=== PATIENT | female | born 2000 | race African-American/Black ===

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

== ENCOUNTER 2021-01-01 13:39 | Emergency (ER) | payer MEDICAID ==
[~2021-01-01] VITALS: Ht 172.7 cm; Wt 86.4 kg
[2021-01-01 13:46] VITALS: BP 130/86; TEMP 97.2
[2021-01-01 15:25] VITALS: PULSE 87
== END 2021-01-01 15:26 | disposition home or self-care (01) ==
LOC: COL.ER 13:39
DX: J35.8 Other chronic diseases of tonsils and adenoids (principal); F17.210 Nicotine dependence, cigarettes, uncomplicated
CPT/HCPCS: J1885

== ENCOUNTER 2021-01-03 21:40 | Emergency (ER) | payer MEDICAID ==
[~2021-01-03] VITALS: Ht 172.7 cm; Wt 86.4 kg
[2021-01-03 23:42] LABS: STREP SCREEN NEGATIVE
[2021-01-03 23:54] LABS: COLLECTION METHOD CLEAN CATCH
[2021-01-03 23:56] LABS: MONOSCREEN NEGATIVE
[2021-01-03] MEDS ORDERED: PREDNISONE10 MG PO (23:56)
[2021-01-03] MEDS ORDERED: PROAIR HFA0.09 MG/AC IH (23:56)
[2021-01-04 00:20] LABS: MUCOUS Present /lpf; PH 5 (5-8); SQUAMOUS EPITHELIAL 0-2 /hpf; URINE APPEARANCE Hazy; URINE BACTERIA None Seen /hpf; URINE BILIRUBIN Negative (NEGATIVE); URINE BLOOD 3+ (NEGATIVE); URINE COLOR Yellow; URINE GLUCOSE Negative (NEGATIVE); URINE KETONE 1+ (NEGATIVE); URINE LEUKOCYTE ESTERASE Trace (NEGATIVE); URINE NITRATE Negative (NEGATIVE); URINE PROTEIN(semi-quant) 2+ (NEGATIVE); URINE RBC 0-2 /hpf
[2021-01-04] MEDS ORDERED: MAGIC MOUTH PO (01:01)
[2021-01-04] MEDS ORDERED: CEPHALEXIN500 M1 PO (02:52)
[2021-01-04 03:11] VITALS: BP 108/63; PULSE 88; TEMP 97.9
== END 2021-01-04 03:11 | disposition home or self-care (01) ==
LOC: COL.ER 21:40
PROVIDERS: Nurse Practitioner Primary Care
DX: J03.90 Acute tonsillitis, unspecified (principal); N72 Inflammatory disease of cervix uteri; J35.8 Other chronic diseases of tonsils and adenoids; F17.210 Nicotine dependence, cigarettes, uncomplicated
CPT/HCPCS: J0696

== ENCOUNTER 2021-01-17 16:35 | Emergency (ER) | payer MEDICAID ==
[~2021-01-17] VITALS: Ht 172.7 cm; Wt 86.4 kg
[~2021-01-17 16:35] MED LIST: CEPHALEXIN500 M1 PO; MAGIC MOUTH PO; PREDNISONE10 MG PO; PROAIR HFA0.09 MG/AC IH
[2021-01-18 03:36] VITALS: BP 132/86; PULSE 98; TEMP 98.4
== END 2021-01-17 19:06 | disposition home or self-care (01) ==
LOC: COL.ER 16:35
DX: N72 Inflammatory disease of cervix uteri (principal); N76.0 Acute vaginitis; F17.210 Nicotine dependence, cigarettes, uncomplicated
CPT/HCPCS: J0696

== ENCOUNTER 2021-02-26 15:17 | Emergency (ER) | payer MEDICAID ==
[~2021-02-26] VITALS: Ht 172.7 cm; Wt 88.6 kg
[2021-02-26 15:35] VITALS: BP 106/68; TEMP 98.7
[2021-02-26] MEDS ORDERED: ZOFRAN ODT4 MG PO (16:47)
[2021-02-26 17:30] VITALS: PULSE 74
== END 2021-02-26 17:30 | disposition home or self-care (01) ==
LOC: COL.ER 15:17
DX: N76.0 Acute vaginitis (principal)

== ENCOUNTER 2021-03-04 17:06 | Emergency (ER) | payer MEDICAID ==
[~2021-03-04] VITALS: Ht 170.2 cm; Wt 86.4 kg
[~2021-03-04 17:06] MED LIST changes: +ZOFRAN ODT4 MG PO
[2021-03-04 17:14] VITALS: TEMP 98.1
[2021-03-04 23:53] VITALS: BP 128/76; PULSE 66
== END 2021-03-04 20:53 | disposition home or self-care (01) ==
LOC: COL.ER 17:06
DX: Z20.2 Contact with and (suspected) exposure to infections with a predominantly sexual mode of transmission (principal); F17.200 Nicotine dependence, unspecified, uncomplicated

== ENCOUNTER 2021-04-09 11:11 | Emergency (ER) | payer MEDICAID ==
[~2021-04-09] VITALS: Ht 170.2 cm; Wt 86.4 kg
[2021-04-09 13:30] LABS: COLLECTION METHOD CLEAN CATCH
[2021-04-09 13:38] LABS: PH 7 (5-8); URINE APPEARANCE Hazy (CLEAR/HAZY); URINE BACTERIA Rare (NONE SEEN); URINE BILIRUBIN Negative (NEGATIVE); URINE BLOOD Negative (NEGATIVE); URINE COLOR Straw (YELLOW); URINE GLUCOSE Negative (NEGATIVE); URINE KETONE Negative (NEGATIVE); URINE LEUKOCYTE ESTERASE 1+ (NEGATIVE); URINE NITRATE Negative (NEGATIVE); URINE PROTEIN(semi-quant) Negative (NEGATIVE); URINE RBC 0-2 /hpf (0-2); URINE UROBILINOGEN Negative (NEGATIVE)
[2021-04-09 13:45] VITALS: BP 121/64; PULSE 64; TEMP 98.1
== END 2021-04-09 11:45 | disposition home or self-care (01) ==
LOC: COL.ER 11:11
PROVIDERS: Family Medicine
DX: N89.8 Other specified noninflammatory disorders of vagina (principal); R19.7 Diarrhea, unspecified; F17.210 Nicotine dependence, cigarettes, uncomplicated
CPT/HCPCS: J0696

== ENCOUNTER 2021-05-12 02:23 | Emergency (ER) | payer MEDICAID ==
[~2021-05-12] VITALS: Ht 172.7 cm; Wt 86.4 kg
[2021-05-12 02:23] VITALS: BP 131/83; PULSE 79; TEMP 98.8
== END 2021-05-12 02:56 | disposition home or self-care (01) ==
LOC: COL.ER 02:23
DX: T78.40XA Allergy, unspecified, initial encounter (principal); J45.909 Unspecified asthma, uncomplicated; Z79.899 Other long term (current) drug therapy
CPT/HCPCS: J2930

== ENCOUNTER 2021-09-03 21:21 | Emergency (ER) | payer MEDICAID ==
[~2021-09-03] VITALS: Ht 172.7 cm; Wt 90.9 kg
[2021-09-03 21:29] VITALS: TEMP 98.4
[2021-09-03 21:46] LABS: COLLECTION METHOD CLEAN CATCH
[2021-09-03 21:52] LABS: MUCOUS Present (NOT PRESENT); PH 7 (5-8); SQUAMOUS EPITHELIAL 0-2 /hpf (0-10); URINE APPEARANCE Clear (CLEAR/HAZY); URINE BACTERIA None Seen /hpf (NONE SEEN); URINE BILIRUBIN Negative (NEGATIVE); URINE BLOOD Negative (NEGATIVE); URINE COLOR Yellow (YELLOW); URINE GLUCOSE Negative (NEGATIVE); URINE KETONE Negative (NEGATIVE); URINE LEUKOCYTE ESTERASE Negative (NEGATIVE); URINE NITRATE Negative (NEGATIVE); URINE PROTEIN(semi-quant) Negative (NEGATIVE); URINE RBC 0-2 /hpf (0-2); URINE UROBILINOGEN Negative (NEGATIVE)
[2021-09-04 00:08] VITALS: BP 128/78; PULSE 76
== END 2021-09-04 00:08 | disposition home or self-care (01) ==
LOC: COL.ER 21:21
PROVIDERS: Family Medicine
DX: Q83.8 Other congenital malformations of breast (principal)

== ENCOUNTER 2021-10-17 21:26 | Emergency (ER) | payer MEDICAID ==
[~2021-10-17] VITALS: Ht 175.3 cm; Wt 90.9 kg
[2021-10-17 21:35] VITALS: TEMP 98.4
[2021-10-17 22:32] LABS: COLLECTION METHOD CLEAN CATCH
[2021-10-17 22:42] LABS: MUCOUS Present (NOT PRESENT); PH 5 (5-8); SQUAMOUS EPITHELIAL 0-2 /hpf (0-10); URINE APPEARANCE Clear (CLEAR/HAZY); URINE BACTERIA None Seen /hpf (NONE SEEN); URINE BILIRUBIN Negative (NEGATIVE); URINE BLOOD Negative (NEGATIVE); URINE COLOR Yellow (YELLOW); URINE GLUCOSE Negative (NEGATIVE); URINE KETONE Trace (NEGATIVE); URINE LEUKOCYTE ESTERASE Negative (NEGATIVE); URINE NITRATE Negative (NEGATIVE); URINE PROTEIN(semi-quant) Negative (NEGATIVE); URINE RBC 0-2 /hpf (0-2); URINE UROBILINOGEN Negative (NEGATIVE)
[2021-10-17 23:43] VITALS: BP 127/79; PULSE 55
== END 2021-10-17 23:43 | disposition home or self-care (01) ==
LOC: COL.ER 21:26
PROVIDERS: Emergency Medicine
DX: N89.8 Other specified noninflammatory disorders of vagina (principal); L85.3 Xerosis cutis; Z28.310 Unvaccinated for COVID-19
CPT/HCPCS: J0696

== ENCOUNTER 2021-12-31 16:48 | Emergency (ER) | payer MEDICAID ==
[~2021-12-31] VITALS: Ht 175.3 cm; Wt 86.4 kg
[2021-12-31 17:01] VITALS: TEMP 98.3
[2021-12-31 17:14] LABS: COLLECTION METHOD CLEAN CATCH
[2021-12-31 17:22] LABS: PH 6.5 (5.0-8.5); URINE APPEARANCE Clear (CLEAR/HAZY); URINE COLOR Yellow (YELLOW); URINE PROTEIN(semi-quant) Negative (NEGATIVE)
[2021-12-31 17:23] LABS: MUCOUS Present (NOT PRESENT); SQUAMOUS EPITHELIAL 0-2 /hpf (0-10); URINE BACTERIA None Seen /hpf (NONE SEEN); URINE BLOOD Negative (NEGATIVE); URINE GLUCOSE Negative (NEGATIVE); URINE KETONE 1+ (NEGATIVE); URINE NITRATE Negative (NEGATIVE); URINE RBC 0-2 /hpf (0-2); URINE UROBILINOGEN 0.2 E.U/dL (0.2-1.0)
[2021-12-31] MEDS ORDERED: DOXYCYCLINE 10100 MG PO (18:09)
[2021-12-31 18:19] VITALS: BP 114/64; PULSE 74
== END 2021-12-31 18:24 | disposition home or self-care (01) ==
LOC: COL.ER 16:48
PROVIDERS: Physician Assistant
DX: N76.0 Acute vaginitis (principal); Z28.310 Unvaccinated for COVID-19
CPT/HCPCS: J0696

== ENCOUNTER 2022-01-30 23:04 | Emergency (ER) | payer MEDICAID ==
[~2022-01-30] VITALS: Ht 175.3 cm; Wt 86.4 kg
[~2022-01-30 23:04] MED LIST changes: +DOXYCYCLINE 10100 MG PO
[2022-01-30 23:25] VITALS: BP 130/80; TEMP 98.5
[2022-01-31] MEDS ORDERED: CEPHALEXIN500 M1 PO (01:32)
[2022-01-31 01:44] VITALS: PULSE 72
== END 2022-01-31 01:44 | disposition home or self-care (01) ==
LOC: COL.ER 23:04
DX: N76.4 Abscess of vulva (principal); Z28.310 Unvaccinated for COVID-19

== ENCOUNTER 2022-03-20 23:51 | Emergency (ER) | payer MEDICAID ==
[~2022-03-20] VITALS: Ht 175.3 cm; Wt 86.4 kg
[2022-03-21 00:08] LABS: COLLECTION METHOD CLEAN CATCH
[2022-03-21 00:17] LABS: PH 6.5 (5.0-8.5); URINE APPEARANCE Clear (CLEAR/HAZY); URINE BLOOD Negative (NEGATIVE); URINE COLOR Yellow (YELLOW); URINE GLUCOSE Negative (NEGATIVE); URINE KETONE Negative (NEGATIVE); URINE NITRATE Negative (NEGATIVE); URINE PROTEIN(semi-quant) Negative (NEGATIVE); URINE UROBILINOGEN 0.2 E.U/dL (0.2-1.0)
[2022-03-21 00:18] LABS: MUCOUS Present (NOT PRESENT); URINE BACTERIA None Seen /hpf (NONE SEEN); URINE RBC 0-2 /hpf (0-2)
[2022-03-21 01:05] VITALS: BP 118/64; PULSE 91; TEMP 100
[2022-03-27] MEDS ORDERED: PHENERGAN 25 TA25 MG PO (19:41)
== END 2022-03-21 01:05 | disposition home or self-care (01) ==
LOC: COL.ER 23:51
PROVIDERS: Emergency Medicine
DX: O98.511 Other viral diseases complicating pregnancy, first trimester (principal); U07.1 COVID-19; R50.9 Fever, unspecified; R53.81 Other malaise; Z28.310 Unvaccinated for COVID-19; Z3A.01 Less than 8 weeks gestation of pregnancy

== ENCOUNTER 2023-05-29 01:35 | Emergency (ER) | payer MEDICAID ==
[~2023-05-29] VITALS: Ht 172.7 cm; Wt 95.5 kg
[~2023-05-29 01:35] MED LIST changes: +ASPIRIN 81M81 MG/TA2 PO; +MOTRIN 800800 MG/TAB PO; +PHENERGAN 25 TA25 MG PO
[2023-05-29 03:37] LABS: COLLECTION METHOD CLEAN CATCH
[2023-05-29 03:38] VITALS: BP 119/71; PULSE 86; TEMP 98.1
[2023-05-29 03:38] LABS: MUCOUS Present (NOT PRESENT); URINE APPEARANCE Clear (CLEAR/HAZY); URINE BLOOD Negative (NEGATIVE); URINE COLOR Yellow (YELLOW); URINE GLUCOSE Negative (NEGATIVE); URINE KETONE Negative (NEGATIVE); URINE NITRATE Negative (NEGATIVE); URINE PROTEIN(semi-quant) Negative (NEGATIVE); URINE RBC 0-2 /hpf (0-2); URINE UROBILINOGEN 0.2 E.U/dL (0.2-1.0)
[2023-05-29 03:39] LABS: URINE BACTERIA Rare /hpf (NONE SEEN)
== END 2023-05-29 03:38 | disposition home or self-care (01) ==
LOC: COL.ER 01:35
PROVIDERS: Nurse Practitioner
DX: N89.8 Other specified noninflammatory disorders of vagina (principal); R30.0 Dysuria; F17.290 Nicotine dependence, other tobacco product, uncomplicated

== ENCOUNTER 2023-07-05 04:37 | Emergency (ER) | payer MEDICAID ==
[~2023-07-05] VITALS: Ht 170.2 cm; Wt 97.7 kg
[2023-07-05 04:47] VITALS: BP 134/83; TEMP 98.5
[2023-07-05 05:43] LABS: COLLECTION METHOD CLEAN CATCH
[2023-07-05 05:52] LABS: PH 5.5 (5.0-8.5); URINE APPEARANCE CLEAR (CLEAR/HAZY); URINE BLOOD NEGATIVE (NEGATIVE); URINE COLOR YELLOW (YELLOW); URINE GLUCOSE NEGATIVE (NEGATIVE); URINE KETONE NEGATIVE (NEGATIVE); URINE NITRATE NEGATIVE (NEGATIVE); URINE PROTEIN(semi-quant) NEGATIVE (NEGATIVE); URINE UROBILINOGEN 0.2 E.U/dL (0.2-1.0)
[2023-07-05] MEDS ORDERED: DOXYCYCLINE 10100 MG PO (06:11)
[2023-07-05] MEDS ORDERED: cefTRIAXone 500 MG,Lidocaine PF 1% 1 ML IM ONE (06:15)
[2023-07-05 06:40] VITALS: PULSE 85
== END 2023-07-05 06:40 | disposition home or self-care (01) ==
LOC: COL.ER 04:37
PROVIDERS: Emergency Medicine
DX: N98.9 Complication associated with artificial fertilization, unspecified (principal); R10.2 Pelvic and perineal pain
CPT/HCPCS: J0696

== ENCOUNTER 2023-11-10 18:22 | Emergency (ER) | payer MEDICAID ==
[~2023-11-10] VITALS: Ht 172.7 cm; Wt 101.8 kg
[2023-11-10 18:23] VITALS: TEMP 98.2
[2023-11-10 19:09] LABS: BASO # 0.1 K/mm3 (0.0-0.2); BASO % 0.7 % (0.0-2.0); EOS # 0.4 K/mm3 (0.0-0.7); GRAN # 5.2 K/mm3 (1.4-6.5); GRAN % 59.9 % (42.2-75.2); HEMATOCRIT 45.5 % (37.0-47.0); LYMPH # 2.2 K/mm3 (1.2-3.4); LYMPH % 24.9 % (20.0-51.0); MEAN CELL VOLUME 91 fl (80.0-100.0); MEAN CORPUSCULAR HEMOGLOBIN 30 pg (27-31); MEAN CORPUSCULAR HGB CONC 33 g/dl (33.0-37.0); MEAN PLATELET VOLUME 9.6 fl (7.4-10.4); MONO # 0.9 K/mm3 (0.1-0.6); MONO % 9.9 % (1.7-9.3); PLATELET COUNT 326 K/mm3 (130-400); REDCELL DISTRIBUTION WIDTH-CV 12.7 % (11.5-14.5)
[2023-11-10 19:34] LABS: ALBUMIN 3.4 g/dL (3.5-5.0); BILIRUBIN,TOTAL 0.4 mg/dL (0.2-1.2); CALCIUM 7.8 mg/dL (8.4-10.2); CREATININE, serum 0.86 mg/dL (0.57-1.11); POTASSIUM 3.9 mEq/L (3.5-4.5); TOTAL PROTEIN 6.4 g/dl (6.2-8.1)
[2023-11-10 20:03] VITALS: BP 120/74; PULSE 81
== END 2023-11-10 20:03 | disposition home or self-care (01) ==
LOC: COL.ER 18:22
PROVIDERS: Physician Assistant
DX: E86.0 Dehydration (principal)

== ENCOUNTER 2023-11-17 22:41 | Emergency (ER) | payer SELFPAY ==
[~2023-11-17] VITALS: Ht 172.7 cm; Wt 102.3 kg
[2023-11-17 22:45] VITALS: BP 114/80; TEMP 98.5
[2023-11-17 23:49] LABS: COLLECTION METHOD CLEAN CATCH
[2023-11-18 00:29] LABS: PH 5.5 (5.0-8.5); URINE APPEARANCE CLEAR (CLEAR/HAZY); URINE BLOOD 2+ (NEGATIVE); URINE COLOR YELLOW (YELLOW); URINE GLUCOSE NEGATIVE (NEGATIVE); URINE KETONE NEGATIVE (NEGATIVE); URINE NITRATE NEGATIVE (NEGATIVE); URINE PROTEIN(semi-quant) NEGATIVE (NEGATIVE); URINE UROBILINOGEN 0.2 E.U/dL (0.2-1.0)
[2023-11-18 01:45] VITALS: PULSE 69
== END 2023-11-18 01:45 | disposition home or self-care (01) ==
LOC: COL.ER 22:41
PROVIDERS: Emergency Medicine
DX: R31.9 Hematuria, unspecified (principal); R30.0 Dysuria